=== PATIENT | female | born 1980 | race Two or more races ===

== ENCOUNTER → 2020-09-05 | Outpatient (CLI) | payer SELFPAY ==
[~2020-09-05] MED LIST: CONTRAST GIVEN. MC PRN
[2020-09-05] MEDS: IOHEXOL 240 MG/ML 50ML VIAL. PO ONE (10:45)
[2020-09-05] MEDS: IOHEXOL 300 MG/ML 100ML VIAL. IV ONE (10:45)
--- NOTE | 2020-09-05 16:53 | RAD ---
PQRS Compliance Statement: One or more of the following individualized dose reduction techniques were utilized for this examinat ion: 1. Automated exposure control 2. Adjustment of the mA and/or kV according to patient size 3. Use of iterative reconstruction technique CT abdomen/pelvis with contrast 09/05/2020 10:26 AM INDICATION: Persistent left lower quadrant abdominal pain COMPARISON: None available TECHNIQUE: Multiple axial CT images of the abdomen and pelvis were obtained after the intravenous adm inistration of 75 mL Omnipaque 300. Coronal and sagittal reformats are provided. FINDINGS: Lung bases are clear. Heart size is within normal limits. Liver, spleen, bilateral adrenal glands, pancreas and gallbladder are normal in appearance. The abdominal aorta is normal in course and caliber. There are no pathologically enlarged lymph nodes in the abdomen and pelvis. There is no abdominal free fluid. There is no free intraperitoneal air. Oral contrast was administered. Opacified bowel loops demonstrate normal mucosal fold pattern. Small and large bowel are normal in caliber. There is no evidence for bowel obstruction. There are no peric olonic inflammatory changes. A normal, nondilated appendix is visualized without adjacent inflammator y changes. The kidneys enhance symmetrically. There is no suspicious renal mass. There is no hydronephrosis. The re are no suspected calculi within the kidneys, ureters or urinary bladder. Urinary bladder is within normal limits given degree of distention. Uterus is normal in appearance. Follicular changes are mirela ntified in the adnexa bilaterally. No suspicious osseous abnormality. IMPRESSION: No acute abnormality is identified in abdomen and pelvis. Follicular changes identified in the adnexa , left greater than right. Electronically signed by: Daniela Castillo MD (09/05/2020 4:51 PM) [facility]
== END ==
LOC: CT 10:38
PROVIDERS: ATTEND Family Medicine
DX: R10.32 Left lower quadrant pain (principal)
CPT/HCPCS: 74177; Q9966; Q9967